=== PATIENT | female | born 1980 | race Caucasian/White ===

== ENCOUNTER → 2018-11-12 | Outpatient (CLI) | payer BC ==
[2015-12-28 10:31] VITALS: BP 131/85
[~2018-11-12] MED LIST: BENZ100C PO; DOXY100C2 PO; HYDR-3165 PO; IBUP800T19 PO
--- NOTE | 2018-11-12 16:17 | RAD ---
DATE: November 12, 2018 EXAM: MAMMO SARAH SCREENING BILATERAL, BILATERAL BREAST SONOGRAPHY HISTORY: Bilateral breast tenderness. Patient's physician found a lump in the lateral lower quadrant of the left breast. COMPARISON: None. Baseline study. 2-D DIAGNOSTIC MAMMOGRAPHY This study was interpreted with the benefit of Computerized Aided Detection (CAD). FINDINGS: There is difficulty in positioning this patient and performing the mammogram due to severe breast tenderness bilaterally. The patient did not tolerate much compression. Breast Density: SCATTERED The breast parenchyma shows scattered fibroglandular densities. Breast parenchyma level B. A BB was placed on the outer lower quadrant of the left breast in the area of the palpable lump as indicated by the patient. No focal mammographic abnormality is seen here. The left breast is unremarkable. On the right side, there is an irregular nodule seen 8 cm straight back from the nipple at the 6 clock position measuring about 1 cm in size. No clustering of pleomorphic microcalcifications are evident on either side. LEFT BREAST SONOGRAPHY: High-resolution sonography of the inferior one half of the left breast from the 3:00 and 9:00 position was performed. No focal sonographic abnormality is evident. RIGHT BREAST SONOGRAPHY: High-resolution sonography of the right breast from the 5:00 to 7:00 position was performed. No focal sonographic abnormality is seen to correspond to the mammographic finding. Therefore, the mammographic finding is indeterminate. IMPRESSION: No focal mammographic or sonographic abnormality is seen to correspond to the area of possible breast lump of the lower outer quadrant of the left breast. Therefore, with regard to the palpable lump, follow-up should be clinical. There is an indeterminate mammographic nodule of the 6:00 position of the right breast 8 cm from the nipple. No sonographic correlate. Recommend breast MRI study with gadolinium for further evaluation. Note-this study was interpreted off site. Therefore, the research food technologist discussed the findings with the patient and recommendation for a breast MRI study. She told the patient to call her physician's office for further instructions. In addition, the research food technologist called the office of the patient's physician and told them about the recommendation for a breast MRI study. BI-RADS CATEGORY: 0 INCOMPLETE: NEEDS ADDITIONAL IMAGING EVALUATION AND/OR PRIOR MAMMOGRAMS FOR COMPARISON. RECOMMENDED FOLLOW-UP: ADD ADDITIONAL IMAGING PQRS compliance statement: Patient information was entered into a reminder system with a target due date November 13, 2019 for the next mammogram. Mammography is a sensitive method for finding small breast cancers, but it does not detect them all and is not a substitute for careful clinical examination. A negative mammogram does not negate a clinically suspicious finding and should not result in delay in biopsying a clinically suspicious abnormality. "Our facility is accredited by the [employer] Mammography Program." The patient's breast density may affect the ability of mammography to detect breast cancer. There are 4 categories of breast density, A, B, C and D. Breast density A means that most of the breast tissue is replaced with adipose tissue and therefore is not dense. Breast density B means that the breast tissue is mildly dense and scattered. Breast density C means that the breast tissue is heterogeneously dense. Breast density D means that the breast tissue is very dense. Breast densities especially C and D may decrease the sensitivity of mammography to detect breast cancer. Therefore, the patient may benefit from 3-D breast mammography (3D breast tomography) as a part of their screening mammogram. Insurance may or may not pay for this additional imaging. The patient's breast density based on today's mammogram is category B.
== END | disposition home or self-care (01) ==
LOC: MAMMO 14:00
PROVIDERS: ATTEND Physician Assistant
DX: N64.4 Mastodynia (principal)
CPT/HCPCS: 76641; 77066

== ENCOUNTER → 2019-12-30 | Outpatient (CLI) | payer OTHER ==
[2015-12-28 10:31] VITALS: BP 131/85
--- NOTE | 2019-12-30 13:59 | RAD ---
EXAM: OBSTETRIC ULTRASOUND, <14 WEEKS. HISTORY: Pelvic pain in . COMPARISON: None. FINDINGS: Sonographic evaluation of the pelvis was performed transabdominally and transvaginally. The uterus is anteverted and measures 8.9 x 5.0 x 4.9 cm. There is a single intrauterine gestation measuring 6 weeks 1 day. heart rate is 113 bpm. A yolk sac is visualized. The gestational sac is regular. There is no subchorionic collection. Neither ovary is visualized currently. There is no clear adnexal mass. There is no significant free fluid. IMPRESSION: 1. Single intrauterine gestation measuring 6 weeks 1 day. heart rate 113 bpm. Electronically signed by: Neri Doran MD (12/30/2019 1:56 PM) [facility]
== END | disposition home or self-care (01) ==
LOC: US 13:20
PROVIDERS: ATTEND Family Medicine
DX: O26.91 Pregnancy related conditions, unspecified, first trimester (principal); N39.0 Urinary tract infection, site not specified; Z3A.01 Less than 8 weeks gestation of pregnancy
CPT/HCPCS: 76801

== ENCOUNTER 2020-01-22 10:33 | Emergency (ER) | payer OTHER ==
[~2020-01-22] VITALS: Ht 160 cm; Wt 60.6 kg
[2020-01-22] MEDS ORDERED: IV NORMAL SALINE 1,000ML 1,000 ML IV SCH (10:54)
[2020-01-22] MEDS ORDERED: ONDANSETRON PF 4 MG/2 ML VIAL. IVP ONE (11:00)
[2020-01-22 11:28] LABS: BASO # 0.1 x10^3/uL (0.0-0.2); BASO % 1 % (0-3); EOS # 0.1 x10^3/uL (0.0-0.7); EOS % 1 % (0-3); HEMATOCRIT 38.3 % (36.0-47.0); HEMOGLOBIN 13.1 g/dL (12.0-15.5); LYMPH # 2.3 x10^3/uL (1.0-4.8); LYMPH % 15 % (24-48); MEAN CORPUSCULAR HEMOGLOBIN 33 pg (25-35); MEAN CORPUSCULAR HGB CONC 34 g/dL (31-37); MEAN CORPUSCULAR VOLUME 96 fL (79-100); MONO # 0.9 x10^3/uL (0.0-1.1); MONO % 6 % (0-9); NEUT # 12.1 x10^3uL (1.8-7.7); NEUT % 78 % (31-73); PLATELET COUNT 254 x10^3/uL (140-400); RED CELL DISTRIBUTION WIDTH 12.7 % (11.5-14.5); WHITE BLOOD COUNT 15.5 x10^3/uL (4.0-11.0)
[2020-01-22 11:39] LABS: CALCIUM 8.5 mg/dL (8.5-10.1); CREATININE 0.5 mg/dL (0.6-1.0); POTASSIUM 3.7 mmol/L (3.5-5.1)
[2020-01-22 11:44] LABS: ALBUMIN 3.5 g/dL (3.4-5.0); TOTAL BILIRUBIN 0.4 mg/dL (0.2-1.0)
[2020-01-22 11:51] LABS: BACTERIA,URINE MOD /HPF (0-FEW); BILIRUBIN,URINE NEG (NEG); CLARITY,URINE CLEAR; COLOR,URINE YELLOW; GLUCOSE,URINE NEG (NEG); NITRITE,URINE NEG (NEG); SQUAMOUS EPITHELIAL CELL,UR MOD /LPF; UROBILINOGEN,URINE 0.2 mg/dL (0.2 mg/dL)
[2020-01-22 12:26] LABS: % ATYL 1 % (0-0); % BANDS 1 % (0-9); % LYMPHS 14 % (24-48); % MONOS 8 % (0-10); % SEGS 76 % (35-66)
[2020-01-22] MEDS ORDERED: ONDA4TAB12 PO (12:27)
--- NOTE | 2020-01-22 12:27 | PHYS DOC ---
Past History Past Medical History: Cancer, Other Additional Past Medical Histor: Right sided breast cancer Past Surgical History: Other Additional Past Surgical Histo: right sided lumpectomy Alcohol Use: None Drug Use: None Adult General Chief Complaint Chief Complaint: VOMITING IN [facility] HPI Patient is a 40-year-old female who presents with complaint of nausea and vomiting with . Patient states that she is and found out she was approximately 2 weeks ago. Patient states that nausea and vomiting has really been getting worse over the last week. She denies having any nausea medication at home. Patient states that she is concerned that she is getting dehydrated although she does indicate she has been able to keep fluids down. She denies any pelvic cramping or vaginal bleeding. She does admit that her abdomen is getting a bit sore with the vomiting.[] Review of Systems Review of Systems Constitutional: Denies fever or chills [] Respiratory: Denies cough or shortness of breath [] Cardiovascular: No additional information not addressed in HPI [] GI: Denies abdominal pain. Complains of nausea and vomiting without diarrhea [] Neurologic: Denies headache, focal weakness or sensory changes [] All other systems were reviewed and found to be within normal limits, except as documented in this note. Current Medications Current Medications Current Medications Medications (Trade) Dose Ordered Sig/Chris Start Time Stop Time Status Last Admin Dose Admin Ondansetron HCl (Zofran) 4 mg 1X ONCE 01/22/20 11:00 01/22/20 11:01 DC 01/22/20 11:08 4 MG Sodium Chloride 1,000 ml @ 1,000 mls/hr Q1H 01/22/20 10:54 01/22/20 11:53 DC 01/22/20 11:08 1,000 MLS/HR Allergies Allergies Allergies Coded Allergies Type Severity Reaction Last Updated Verified Penicillins Allergy Intermediate 01/22/20 No cephalexin Allergy Intermediate 01/22/20 No sulfamethoxazole Allergy Intermediate 01/22/20 No trimethoprim Allergy Intermediate 01/22/20 No Physical Exam Physical Exam Constitutional: Well developed, well nourished, no acute distress, non-toxic appearance. [] HENT: Normocephalic, atraumatic, bilateral external ears normal, oropharynx moist, no oral exudates, nose normal. [] Eyes: PERRLA, EOMI, conjunctiva normal, no discharge. [] Neck: Normal range of motion, no tenderness, supple, no stridor. [] Cardiovascular:Heart rate regular rhythm, no murmur [] Lungs & Thorax: Bilateral breath sounds clear to auscultation [] Abdomen: Bowel sounds normal, soft, no tenderness. [] Skin: Warm, dry, no erythema, no rash. [] Extremities: No tenderness, no cyanosis, no clubbing, ROM intact, no edema. [] Neurologic: Alert and oriented X 3, no focal deficits noted. [] Current Patient Data Vital Signs Vital Signs Date Time Temp Pulse Resp B/P (MAP) Pulse Ox O2 Delivery O2 Flow Rate FiO2 01/22/20 11:26 97.4 98 18 135/80 (98) 99 Room Air Lab Results Laboratory Tests Test 01/22/20 11:00 01/22/20 11:12 Urine Collection Type Unknown Urine Color Yellow Urine Clarity Clear Urine pH 7.0 Urine Specific [place] 1.015 Urine Protein Neg (NEG-TRACE) Urine Glucose (UA) Neg mg/dL (NEG) Urine Ketones (Stick) 40 mg/dL (NEG) Urine Blood Trace (NEG) Urine Nitrite Neg (NEG) Urine Bilirubin Neg (NEG) Urine Urobilinogen Dipstick 0.2 mg/dL (0.2 mg/dL) Urine Leukocyte Esterase Neg (NEG) Urine RBC 6-10 /HPF (0-2) Urine WBC 1-4 /HPF (0-4) Urine Squamous Epithelial Cells Mod /LPF Urine Transitional Epithelial Cells Few /LPF Urine Bacteria Mod /HPF (0-FEW) White Blood Count 15.5 x10^3/uL (4.0-11.0) H Red Blood Count 4.00 x10^6/uL (3.50-5.40) Hemoglobin 13.1 g/dL (12.0-15.5) Hematocrit 38.3 % (36.0-47.0) Mean Corpuscular Volume 96 fL (79-100) Mean Corpuscular Hemoglobin 33 pg (25-35) Mean Corpuscular Hemoglobin Concent 34 g/dL (31-37) Red Cell Distribution Width 12.7 % (11.5-14.5) Platelet Count 254 x10^3/uL (140-400) Neutrophils (%) (Auto) 78 % (31-73) H Lymphocytes (%) (Auto) 15 % (24-48) L Monocytes (%) (Auto) 6 % (0-9) Eosinophils (%) (Auto) 1 % (0-3) Basophils (%) (Auto) 1 % (0-3) Neutrophils # (Auto) 12.1 x10^3uL (1.8-7.7) H Lymphocytes # (Auto) 2.3 x10^3/uL (1.0-4.8) Monocytes # (Auto) 0.9 x10^3/uL (0.0-1.1) Eosinophils # (Auto) 0.1 x10^3/uL (0.0-0.7) Basophils # (Auto) 0.1 x10^3/uL (0.0-0.2) Platelet Estimate Pending Maternal Serum HCG Beta Subunit 79464 mIU/mL (0-6) H Sodium Level 138 mmol/L (136-145) Potassium Level 3.7 mmol/L (3.5-5.1) Chloride Level 103 mmol/L (98-107) Carbon Dioxide Level 22 mmol/L (21-32) Anion Gap 13 (6-14) Blood Urea Nitrogen 4 mg/dL (7-20) L Creatinine 0.5 mg/dL (0.6-1.0) L Estimated GFR (Cockcroft-Gault) 136.0 BUN/Creatinine Ratio 8 (6-20) Glucose Level 83 mg/dL (70-99) Calcium Level 8.5 mg/dL (8.5-10.1) Total Bilirubin 0.4 mg/dL (0.2-1.0) Aspartate Amino Transferase (AST) 18 U/L (15-37) Alanine Aminotransferase (ALT) 25 U/L (14-59) Alkaline Phosphatase 65 U/L (46-116) Total Protein 7.0 g/dL (6.4-8.2) Albumin 3.5 g/dL (3.4-5.0) Albumin/Globulin Ratio 1.0 (1.0-1.7) Lipase 73 U/L (73-393) EKG EKG [] Radiology/Procedures Radiology/Procedures [] Course & Med Decision Making Course & Med Decision Making Pertinent Labs and Imaging studies reviewed. (See chart for details) [] Dragon Disclaimer Dragon Disclaimer This electronic medical record was generated, in whole or in part, using a voice recognition dictation system. Departure Departure: Impression: Primary Impression: Nausea and vomiting during Disposition: HOME, SELF-CARE Condition: STABLE Referrals: CHACHA ALFONSO MD (PCP) Patient Instructions: Nausea and Vomiting, Scripts Ondansetron (ONDANSETRON ODT) 4 Mg Tab.rapdis 1 TAB PO PRN Q6-8HRS PRN for NAUSEA, #12 TAB Prov: DIMITRIS JAY Jr. DO 01/22/20 DIMITRIS JAY Jr. DO Jan 22, 2020 12:27
[2020-01-22 12:28] LABS: PLT ESTIMATE ADEQUATE (ADEQUATE)
[2020-01-22 12:34] VITALS: BP 117/66
== END 2020-01-22 12:35 | disposition home or self-care (01) ==
LOC: ER 10:33
DX: O21.9 Vomiting of pregnancy, unspecified (principal); Z3A.01 Less than 8 weeks gestation of pregnancy; Z88.0 Allergy status to penicillin; Z88.1 Allergy status to other antibiotic agents; Z88.2 Allergy status to sulfonamides
CPT/HCPCS: 36415; 80053; 81001; 83690; 84702; 85007; 85025; 87086; 96361; 96374; 99283; J2405; J7030

== ENCOUNTER → 2020-04-08 | Outpatient (CLI) | payer OTHER ==
[~2020-04-08] MED LIST changes: +ONDA4TAB12 PO
--- NOTE | 2020-04-08 15:09 | RAD ---
EXAM: Obstetrics sonogram. HISTORY: Size and dates discrepancy. TECHNIQUE: Sonographic imaging of a gravid uterus was performed. COMPARISON: 12/30/2019. FINDINGS: There is a single intrauterine fetus in breech presentation with a normal heart rate of 149 bpm. There is a three-vessel umbilical cord. The heart, stomach, kidneys, bladder, spine, brain, facial profile and extremities are unremarkable. There is a posterior placenta without evidence of placenta previa. The amniotic fluid index is normal at 19.1 cm. The biparietal diameter is 4.9 cm, corresponding with 20 weeks and 5 days. The heads are present is 18.0 cm, corresponding with 20 weeks and 3 days. The abdominal circumference is 15.3 cm, corresponding with 20 weeks and 3 days. The femoral length is 3.4 cm, corresponding with 20 weeks and 6 days. The estimated gestational age patient combined ultrasound measurements is 20 weeks and 4 days. The estimated due date is 08/22/2020. This estimated weight is 366 g. The estimated due date is 08/22/2020. The cervix is closed and measures 3.4 cm in length. IMPRESSION: 1. Single intrauterine fetus in breech presentation with a normal heart rate and gestational age based on ultrasound measurements of 20 weeks and 4 days. 2. Unremarkable anatomy survey. Electronically signed by: Pamela Gold MD (04/08/2020 3:06 PM) [id number]
== END ==
LOC: US 12:39
PROVIDERS: ATTEND Obstetrics & Gynecology
DX: O32.1XX0 Maternal care for breech presentation, not applicable or unspecified (principal); Z3A.20 20 weeks gestation of pregnancy
CPT/HCPCS: 76805

== ENCOUNTER 2020-08-10 14:55 | Emergency (ER) | payer OTHER ==
[~2020-08-10] VITALS: Ht 160 cm; Wt 77.2 kg
--- NOTE | 2020-08-10 15:24 | PHYS DOC ---
Past History Past Medical History: Cancer, Other Additional Past Medical Histor: Right sided breast cancer Past Surgical History: Other Additional Past Surgical Histo: right sided lumpectomy Alcohol Use: None Drug Use: None General Adult EDM: Chief Complaint: MULTIPLE COMPLAINTS HPI: HPI: The history was obtained from the patient. Patient is a 40-year-old female with PMH preeclampsia, anxiety who presents with a chief complaint of chest pain. Patient states she is had chest discomfort ever since she delivered her baby. She notes that she was diagnosed with preeclampsia and had her and juice for vaginal delivery 4 days ago. She notes that she has had progressive shortness of breath since delivery. She does note chest pain which is made worse with breast palpation. She is not breast-feeding or pumping. She denies any fevers. She does note lower extremity swelling that is been present for several months. She does not take any antihypertensives. She did take a Lasix pill for 3 days as prescribed by her PIPELINE EXECUTIVE. She described her symptoms to her PIPELINE EXECUTIVE today Dr. Stout who instructed her to report to the emergency department. She denies syncope or falls. She denies any seizure-like activity. She does note some tremors. Denies headache or vision changes. Denies vertiginous symptoms. No other complaints. Review of Systems: Review of Systems: Constitutional: Positive for subjective fevers and chills, generalized weakness Eyes: Denies change in visual acuity HENT: Denies nasal congestion or sore throat Respiratory: Positive for shortness of breath Cardiovascular: Positive for lower extremity edema GI: Denies abdominal pain, nausea, vomiting, bloody stools or diarrhea : Denies dysuria Musculoskeletal: Denies back pain or joint pain Integument: Denies rash Neurologic: Denies headache, focal weakness or sensory changes Endocrine: Denies polyuria or polydipsia Lymphatic: Denies swollen glands Psychiatric: Denies depression or anxiety Heart Score: Risk Factors: Risk Factors: DM, Current or recent (<one month) smoker, HTN, HLP, family history of CAD, obesity. Risk Scores: Score 0 - 3: 2.5% MACE over next 6 weeks - Discharge Home Score 4 - 6: 20.3% MACE over next 6 weeks - Admit for Clinical Observation Score 7 - 10: 72.7% MACE over next 6 weeks - Early Invasive Strategies Allergies: Allergies: Allergies Coded Allergies Type Severity Reaction Last Updated Verified Penicillins Allergy Intermediate 01/22/20 No cephalexin Allergy Intermediate 01/22/20 No sulfamethoxazole Allergy Intermediate 01/22/20 No trimethoprim Allergy Intermediate 01/22/20 No Physical Exam: PE: Constitutional: Well developed, well nourished, no acute distress, non-toxic appearance. [] HENT: Normocephalic, atraumatic, bilateral external ears normal, oropharynx moist, no oral exudates, nose normal. [] Eyes: PERRLA, EOMI, conjunctiva normal, no discharge. [] Neck: Normal range of motion, no tenderness, supple, no stridor. [] Cardiovascular:Heart rate regular rhythm, no murmur [] Lungs & Thorax: Bilateral breath sounds clear to auscultation [] Abdomen: Soft, nontender, nonacute abdomen. No involuntary guarding or rigidity noted. No acute peritonitis.. No palpable liver edge. Skin: Warm, dry, no erythema, no rash. [] Back: No tenderness, no CVA tenderness. [] Extremities: +2-4 pitting edema lower extremity bilaterally. Chronic venous skin changes noted. Neurologic: Alert and oriented X 3, normal motor function, normal sensory function, no focal deficits noted. [] Psychologic: Affect normal, judgement normal, mood normal. [] Current Patient Data: Labs: Laboratory Tests Test 08/10/20 15:22 08/10/20 15:42 08/10/20 16:32 White Blood Count 11.6 x10^3/uL Red Blood Count 4.05 x10^6/uL Hemoglobin 14.2 g/dL Hematocrit 41.5 % Mean Corpuscular Volume 103 fL Mean Corpuscular Hemoglobin 35 pg Mean Corpuscular Hemoglobin Concent 34 g/dL Red Cell Distribution Width 13.8 % Platelet Count 260 x10^3/uL Neutrophils (%) (Auto) 75 % Lymphocytes (%) (Auto) 16 % Monocytes (%) (Auto) 6 % Eosinophils (%) (Auto) 2 % Basophils (%) (Auto) 1 % Neutrophils # (Auto) 8.7 x10^3uL Lymphocytes # (Auto) 1.9 x10^3/uL Monocytes # (Auto) 0.7 x10^3/uL Eosinophils # (Auto) 0.3 x10^3/uL Basophils # (Auto) 0.1 x10^3/uL Sodium Level 140 mmol/L Potassium Level 3.6 mmol/L Chloride Level 104 mmol/L Carbon Dioxide Level 24 mmol/L Anion Gap 12 Blood Urea Nitrogen 14 mg/dL Creatinine 0.8 mg/dL Estimated GFR (Cockcroft-Gault) 79.0 BUN/Creatinine Ratio 18 Glucose Level 115 mg/dL Uric Acid 6.0 mg/dL Calcium Level 8.9 mg/dL Magnesium Level 1.8 mg/dL Total Bilirubin 0.4 mg/dL Aspartate Amino Transf (AST/SGOT) 98 U/L Alanine Aminotransferase (ALT/SGPT) 118 U/L Alkaline Phosphatase 157 U/L Lactate Dehydrogenase 356 U/L Troponin I Quantitative < 0.017 ng/mL QD-Pwv-V-Type Natriuretic Peptide 100 pg/mL Total Protein 7.0 g/dL Albumin 3.0 g/dL Albumin/Globulin Ratio 0.8 Prothrombin Time 9.3 SEC Prothromb Time International Ratio 0.9 Activated Partial Thromboplast Time 23 SEC D-Dimer (Cecy) 1.80 mg/L Urine Collection Type U cath Urine Color Yellow Urine Clarity Clear Urine pH 6.5 Urine Specific [place] 1.025 Urine Protein 30 mg/dl Urine Glucose (UA) Neg mg/dL Urine Ketones (Stick) Neg mg/dL Urine Blood Small Urine Nitrite Neg Urine Bilirubin Neg Urine Urobilinogen Dipstick 1.0 mg/dL Urine Leukocyte Esterase Neg Urine RBC 3-5 /HPF Urine WBC Rare /HPF Urine Bacteria Few /HPF Urine Mucus Slight /LPF Current Medications Medications (Trade) Dose Ordered Sig/Chris Route PRN Reason Start Time Stop Time Status Last Admin Dose Admin Labetalol HCl (Normodyne) 20 mg 1X ONCE IVP 08/10/20 15:30 08/10/20 15:31 DC 08/10/20 15:59 Magnesium Sulfate 50 ml @ 25 mls/hr 1X ONCE IV 08/10/20 15:30 08/10/20 17:29 DC 08/10/20 16:08 Labetalol HCl (Normodyne) 40 mg 1X ONCE IVP 08/10/20 16:30 08/10/20 16:31 DC Labetalol HCl 250 mg/Sodium Chloride 250 ml @ 30 mls/hr 1X ONCE IV 08/10/20 16:30 08/10/20 16:30 DC Labetalol HCl (Normodyne) 40 mg 1X ONCE IVP 08/10/20 16:30 08/10/20 16:32 DC Iohexol (Omnipaque 350 Mg/ml) 100 ml 1X ONCE IV 08/10/20 17:00 08/10/20 17:01 DC 08/10/20 17:08 EKG: EKG: EKG consistent with normal sinus rhythm. Ventricular rate of 87 bpm. [place] normal. Intervals normal. No acute ischemic changes noted. [] Radiology/Procedures: Radiology/Procedures: [address] [address] IMAGING REPORT Signed PATIENT: DAMIEN PITT ACCOUNT: [id number] : 1980 LOCATION: ER AGE: 40 SEX: F EXAM STATUS: REG ER ORD. PHYSICIAN: AIMEE RINCON DO REASON: SOB. r/o PE vs post cardiomyopathy signs PROCEDURE: CT ANGIOGRAPHY CHEST EXAM: CT chest with contrast - pulmonary embolus protocol CLINICAL HISTORY: Reason: SOB. r/o PE vs post cardiomyopathy signs COMPARISON: None. TECHNIQUE: CT of the chest following the administration of intravenous contrast during the pulmonary arterial phase. Axial, coronal and sagittal reformatted images were generated including MIP images. ---PQRS compliance statement - One or more of the following individualized dose reduction techniques were utilized for this study: 1. Automated exposure control 2. Adjustment of the mA and/or kV according to patient size 3. Use of iterative reconstruction technique--- FINDINGS: CHEST: Diagnostic quality: Suboptimal. Pulmonary emboli: No pulmonary emboli to the level of the segmental branches. More peripheral vessels are not well assessed. Right heart strain: None Pulmonary arteries: Normal in caliber. Heart is not enlarged. No pericardial effusion. No pleural effusion or pneumothorax. No mediastinal or hilar lymphadenopathy. No axillary lymphadenopathy. No lobar consolidation. Minimal dependent opacities bilaterally likely atelectasis. A 3 mm lung nodule seen in the right upper lobe (series 4 image 56). Subcutaneous nodule overlying the dorsal soft tissues of the superior chest measures approximately 3 cm, possibly sebaceous cyst. Visualized Upper abdomen: Grossly unremarkable Bones: No aggressive osseous lesion is seen. IMPRESSION: 1. Suboptimal contrast bolus limits evaluation for acute pulmonary embolus. Within these constraints, no acute pulmonary emboli to the level of the segmental branches. 2. 3 mm lung nodule in the right upper lobe. Per Fleischner Society guidelines, in a low-risk patient, no follow-up is necessary. In a high-risk patient, follow-up in 12 months is recommended. Electronically signed by: Roger Brown MD (08/10/2020 5:34 PM) [facility] DICTATED AND SIGNED BY: ROGER BROWN MD DATE: 08/10/20 [id number] CC: CHACHA ALFONSO MD; AIMEE RINCON DO ~ [][place] [address] IMAGING REPORT Signed PATIENT: DAMIEN PITT ACCOUNT: [id number] : 1980 LOCATION: ER AGE: 40 SEX: F EXAM STATUS: REG ER ORD. PHYSICIAN: AIMEE RINCON DO REASON: RUQ pain. post . HELLP syndrome. eval for hepatic hematoma PROCEDURE: ABDOMEN LTD Clinical History: Abdominal pain and tenderness 5 days Technique: Sonographic examination of the right upper quadrant of the abdomen was performed and multiple static images were obtained. Comparison: none Findings: Liver: The majority of the liver is visualized and appears homogeneous. Common bile duct: Appears normal and measures 2.5 mm in diameter. Gallbladder: appears normal. There is tenderness over the gallbladder. Pancreas: is not well visualized due to overlying bowel gas but appears within normal limits. Right kidney: appears normal and measures 11 cm in length. Main Portal Vein: Normal hepatopedal flow Aorta: normal IVC: normal Impression: Tenderness over the gallbladder is nonspecific. There is no cholelithiasis. There is no wall thickening or surrounding fluid to suggest acute cholecystitis. Electronically signed by: Johann Acevedo III, MD (08/10/2020 5:14 PM) [id number] DICTATED AND SIGNED BY: JOHANN ACEVEDO III, MD DATE: 08/10/20 [id number] CC: CHACHA ALFONSO MD; AIMEE RINCON DO ~ Course & Med Decision Making: Course & Med Decision Making Pertinent Labs and Imaging studies reviewed. (See chart for details) Patient is a 5-day 40-year-old female presents with multiple complaints including generalized weakness, shortness of breath, leg swelling. Initial vital signs notable for blood pressure 145/110. She was given immediate 4 g of magnesium as well as 20 mg of IV labetalol. Her pressure did improve quickly to a repeat systolic blood pressure of approximately 120. She showed no signs of neurologic symptoms including headache, seizures, vision changes. Basic labs were obtained. Urinalysis does reveal proteinuria. Chemistry panel did reveal mildly elevated liver enzymes. Normal platelets. Normal hemoglobin. Right upper quadrant ultrasound was obtained although I did overall have low concern for help syndrome. This was negative for hepatic hematoma or gallbladder process. CT PE study was also obtained given her status and showed no signs of PE. I do feel the patient will require hospitalization for preeclamptic management. I did speak with the patient's PIPELINE EXECUTIVE Dr. Stout who is in agreement. Her blood pressure did creep up marginally to approximate 145/100 after CAT scan imaging. Repeat 20 mg of nightly available was administered and her repeat blood pressures at 136/90. She continues to show no neurologic symptoms. Patient is agreeable to transfer at this time. Per Vices Disclaimer: Per Vices Disclaimer: This electronic medical record was generated, in whole or in part, using a voice recognition dictation system. Departure Departure: Impression: Primary Impression: Pre-eclampsia Qualified Codes: O14.90 - Unspecified pre-eclampsia, unspecified trimester Additional Impression: Transaminitis Disposition: SHT-TRM HOSP Condition: STABLE Referrals: CHACHA ALFONSO MD (PCP) Justification of Admission: Justification of Admission: Justification of Admission Dx: Yes Comments: pre-eclampsia AIMEE RINCON DO Aug 10, 2020 15:24
[2020-08-10] MEDS ORDERED: LABETALOL 20 MG/4 ML DISP.SYRIN. IVP ONE ×3 (15:30→16:30)
[2020-08-10] MEDS ORDERED: MAGNESIUM SULFATE 2GM 50 ML IV ONE (15:30)
--- NOTE | 2020-08-10 15:44 | RAD ---
CHEST AP ONLY Clinical indications: Shortness of breath COMPARISON: None available. Findings: No acute lung infiltrate or pleural effusion or pulmonary edema or lung mass or pneumothorax is seen. The heart size, pulmonary vasculature, mediastinum and both darlene are unremarkable. Impression: No acute radiographic abnormality is seen. Electronically signed by: Vel Serna MD (08/10/2020 3:41 PM) [id number]
[2020-08-10 16:05] LABS: BASO # 0.1 x10^3/uL (0.0-0.2); BASO % 1 % (0-3); EOS # 0.3 x10^3/uL (0.0-0.7); EOS % 2 % (0-3); HEMATOCRIT 41.5 % (36.0-47.0); HEMOGLOBIN 14.2 g/dL (12.0-15.5); LYMPH # 1.9 x10^3/uL (1.0-4.8); LYMPH % 16 % (24-48); MEAN CORPUSCULAR HEMOGLOBIN 35 pg (25-35); MEAN CORPUSCULAR HGB CONC 34 g/dL (31-37); MEAN CORPUSCULAR VOLUME 103 fL (79-100); MONO # 0.7 x10^3/uL (0.0-1.1); MONO % 6 % (0-9); NEUT # 8.7 x10^3uL (1.8-7.7); NEUT % 75 % (31-73); PLATELET COUNT 260 x10^3/uL (140-400); RED BLOOD COUNT 4.05 x10^6/uL (3.50-5.40); RED CELL DISTRIBUTION WIDTH 13.8 % (11.5-14.5); WHITE BLOOD COUNT 11.6 x10^3/uL (4.0-11.0)
[2020-08-10 16:12] LABS: CALCIUM 8.9 mg/dL (8.5-10.1); CREATININE 0.8 mg/dL (0.6-1.0); POTASSIUM 3.6 mmol/L (3.5-5.1)
[2020-08-10 16:25] LABS: ALBUMIN/GLOBULIN RATIO 0.8 (1.0-1.7); MAGNESIUM 1.8 mg/dL (1.8-2.4); TOTAL BILIRUBIN 0.4 mg/dL (0.2-1.0)
[2020-08-10] MEDS ORDERED: LABETALOL 250 MG in IV NORMAL SALINE 250ML 200 ML IV ONE (16:30)
--- NOTE | 2020-08-10 16:53 | EKG ---
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
[2020-08-10 16:57] LABS: BILIRUBIN,URINE NEG (NEG); CLARITY,URINE CLEAR; COLOR,URINE YELLOW; GLUCOSE,URINE NEG (NEG)
[2020-08-10 16:58] LABS: NITRITE,URINE NEG (NEG)
[2020-08-10] MEDS ORDERED: IOHEXOL 350 MG/ML 100 ML VIAL. IV ONE (17:00)
[2020-08-10 17:04] LABS: BACTERIA,URINE FEW /HPF (0-FEW); WBC,URINE RARE /HPF (0-4)
--- NOTE | 2020-08-10 17:17 | RAD ---
Clinical History: Abdominal pain and tenderness 5 days Technique: Sonographic examination of the right upper quadrant of the abdomen was performed and multiple static images were obtained. Comparison: none Findings: Liver: The majority of the liver is visualized and appears homogeneous. Common bile duct: Appears normal and measures 2.5 mm in diameter. Gallbladder: appears normal. There is tenderness over the gallbladder. Pancreas: is not well visualized due to overlying bowel gas but appears within normal limits. Right kidney: appears normal and measures 11 cm in length. Main Portal Vein: Normal hepatopedal flow Aorta: normal IVC: normal Impression: Tenderness over the gallbladder is nonspecific. There is no cholelithiasis. There is no wall thickening or surrounding fluid to suggest acute cholecystitis. Electronically signed by: Ayush Veras III, MD (08/10/2020 5:14 PM) [id number]
--- NOTE | 2020-08-10 17:37 | RAD ---
EXAM: CT chest with contrast - pulmonary embolus protocol CLINICAL HISTORY: Reason: SOB. r/o PE vs post cardiomyopathy signs COMPARISON: None. TECHNIQUE: CT of the chest following the administration of intravenous contrast during the pulmonary arterial phase. Axial, coronal and sagittal reformatted images were generated including MIP images. ---PQRS compliance statement - One or more of the following individualized dose reduction techniques were utilized for this study: 1. Automated exposure control 2. Adjustment of the mA and/or kV according to patient size 3. Use of iterative reconstruction technique--- FINDINGS: CHEST: Diagnostic quality: Suboptimal. Pulmonary emboli: No pulmonary emboli to the level of the segmental branches. More peripheral vessels are not well assessed. Right heart strain: None Pulmonary arteries: Normal in caliber. Heart is not enlarged. No pericardial effusion. No pleural effusion or pneumothorax. No mediastinal or hilar lymphadenopathy. No axillary lymphadenopathy. No lobar consolidation. Minimal dependent opacities bilaterally likely atelectasis. A 3 mm lung nodule seen in the right upper lobe (series 4 image 56). Subcutaneous nodule overlying the dorsal soft tissues of the superior chest measures approximately 3 cm, possibly sebaceous cyst. Visualized Upper abdomen: Grossly unremarkable Bones: No aggressive osseous lesion is seen. IMPRESSION: 1. Suboptimal contrast bolus limits evaluation for acute pulmonary embolus. Within these constraints, no acute pulmonary emboli to the level of the segmental branches. 2. 3 mm lung nodule in the right upper lobe. Per Fleischner Society guidelines, in a low-risk patient, no follow-up is necessary. In a high-risk patient, follow-up in 12 months is recommended. Electronically signed by: Roger Lima MD (08/10/2020 5:34 PM) JUNITOTHAIS
[2020-08-10] MEDS ORDERED: LORazepam 1 MG TABLET ONE (18:28)
[2020-08-10] MEDS ORDERED: LORazepam 1 MG TABLET PO ONE ×2 (18:30→18:45)
[2020-08-10 19:53] VITALS: BP 140/85
[2020-08-11 18:07] LABS: CREATININE, UR 152.9 mg/dL (Not Estab.)
[2020-08-12 16:07] LABS: ALBUMIN RAND UR 50.2 % (.); ALPHA 1 RAND UR 7.5 % (.); ALPHA 2 RAND UR 16.9 % (.); BETA RAND UR 16.6 % (.); GAMMA RAND UR 8.7 % (.); PROTEIN UR RAND 34.9 mg/dL (Not Estab.)
== END 2020-08-10 20:48 | disposition short-term general hospital (02) ==
LOC: ER 14:55
DX: O14.95 Unspecified pre-eclampsia, complicating the puerperium (principal); R74.0 Nonspecific elevation of levels of transaminase and lactic acid dehydrogenase [LDH]; Z88.0 Allergy status to penicillin; Z88.1 Allergy status to other antibiotic agents; Z88.2 Allergy status to sulfonamides
CPT/HCPCS: 36415; 71045; 71275; 76705; 80053; 81001; 82570; 83615; 83735; 83880; 84166; 84484; 84550; 85025; 85379; 85610; 85730; 93005; 96365; 96375; 96376; 99285; J3475; J3490; Q9967; 96374

== ENCOUNTER → 2021-03-23 | Outpatient (CLI) | payer OTHER ==
--- NOTE | 2021-03-23 16:37 | RAD ---
EXAM: US extremity nonvascular DATE: 03/23/2021 4:09 PM COMPARISON: None INDICATION: Mass lesion, characterize and localize TECHNIQUE: Longitudinal and transverse imaging with intermittent Doppler sampling completed with atte ntion to right shoulder/scapula FINDINGS: A 3.7 x 3.4 x 1 cm solid lesion with central color Doppler flow is seen posterior to the right scapul a. IMPRESSION: Solid mass overlying the right scapula with internal flow on color Doppler imaging. Further evaluatio n with nonemergent contrast-enhanced MRI is recommended. Electronically signed by: Roger Lima MD (03/23/2021 4:35 PM) FADUMO
== END ==
LOC: US 16:02
PROVIDERS: ATTEND Nurse Practitioner Adult Health
DX: M71.311 Other bursal cyst, right shoulder (principal)
CPT/HCPCS: 76881

== ENCOUNTER → 2021-03-29 | Outpatient (CLI) | payer OTHER | LOC: LAB 08:42 | PROVIDERS: ATTEND Nurse Anesthetist, Certified Registered | DX: Z01.812 Encounter for preprocedural laboratory examination (principal); Z20.822 Contact with and (suspected) exposure to COVID-19 | CPT/HCPCS: 87426 ==

== ENCOUNTER → 2021-03-29 | Day surgery (SDC) | payer OTHER ==
[~2021-03-29] MED LIST changes: +ACETAMINOPHEN 500 MG TABLET PO ONE; +BUPIVACAINE MPF 0.25% 10 ML VIAL. ONE; +BUPIVACAINE-EPI 0.25%-1:200000 MPF 30 ML VIAL. INJ ONE; +BUPIVACAINE-EPI 0.25%-1:200000 MPF 30 ML VIAL. ONE; +IPRATRPIUM/ALBUTEROL 0.5/2.5MG 3 ML NEBU. NEB PRN; +IV RINGERS SOLUTION,LACTATED 1,000 ML IV SCH; +KETOROLAC 30 MG/ML VIAL. ONE; +LIDOCAINE 2% PF 5 ML VIAL. ONE; +MIDAZOLAM HCL PF 2 MG/2 ML VIAL. IV ONE; +MIDAZOLAM HCL PF 2 MG/2 ML VIAL. ONE; +ONDANSETRON PF 4 MG/2 ML VIAL. IV PRN; +PROPOFOL 10,000 MCG/ML (20ML) VIAL IV ONE; +SEVOFLURANE 31 TO 60 MINUTES. IH ONE; +SUCCINYLCHOLINE 200 MG/10 ML VIAL. ONE; +diphenhydrAMINE 50 MG/ML VIAL IVP ONE; +diphenhydrAMINE HCL 25 MG CAPSULE PO ONE
[2021-03-29 09:55] LABS: U PREG PATIENT NEGATIVE (NEG)
--- NOTE | 2021-03-29 10:56 | PDOC4 ---
Operative Report DATE March 29, 2021 at 1054 Preop Diagnosis Infected sebaceous cyst of the back Post-op Diagnosis Same Operation Performed Incision and drainage of sebaceous cyst Patient is a 41-year-old female with complaints of enlarging mass on her upper back red painful. Procedure of incision and drainage with packing was explained to the patient detail risk benefits were also discussed including bleeding infection alternatives of the procedure also discussed with the patient who seemed to understand and gave both verbal and written consent had procedure performed. Patient was taken to the operating room placed in the supine position general anesthesia was initiated once patient was sleeping intubated she was then placed in the prone positioning her right shoulder was prepped and draped usual sterile fashion using ChloraPrep. Area over this mass was incised with 11 blade scalpel with copious amounts of purulent material were expressed this was cultured. The rest was suction from the wound the wound was irrigated and suctioned dry the sebaceous cyst capsule was removed piecemeal. The wound was then packed with half-inch iodoform new gauze dressed with 4 x 4 Medipore tape. Patient was repositioned in supine positioning awakened and extubated operating room taken to recovery in stable condition all sponge instrument needle counts listed as correct estimated blood loss 10 mL Surgeon Torito ANESTHESIA PROPOSED: GENERAL, LOCAL Blood Loss 10 mL Specimen Cultures Complications None JOSIANE BERUMEN MD Mar 29, 2021 10:56
--- NOTE | 2021-03-29 10:58 | DISCH ---
DISCHARGE INSTRUCTIONS-DC Condition on Discharge Condition on Discharge: Stable Activity after Discharge Activity Instructions for Disc: Activity as tolerated Diet after Discharge Diet after Discharge: Regular Wound/Incision Care Other wound/incision instructi: Change packing daily, may shower Contacting the [facility] after DC Call your doctor for: If your condition worsens Follow-Up Follow up with: Dr. Berumen in 1 week JOSIANE BERUMEN MD Mar 29, 2021 10:58
--- NOTE | 2021-03-29 11:45 | NUR ---
Patient has red area on hand where new IV was inserted with Levaquin running. Patient also described itching sensation at that site. Levaquin stopped. Notified anesthesia. Anesthesia to order Benadryl.
[2021-03-29 12:00] VITALS: BP 125/84
--- NOTE | 2021-03-29 12:10 | NUR ---
Patient states relief from itching with Benadryl, patient also notes sore, swollen area on upper right lip. This nurse notes small open area and slight swelling. Notified anesthesia. Anesthesia and nursing agree that it appeas to be an open area suspected to be from intubation tube pinching lip when moved into or out of prone position during procedure. Patietn intructed to observe for any increased swelling or swelling in other areas of the mouth/tongue. Patient instructed that if thsi is noted to come directly to Emergency Department or call ambulance. Also discussed signs and symptoms of allergic reaction. Patient verbalized understanding.
--- NOTE | 2021-03-29 12:20 | NUR ---
Discussed discharge and follow-up instructions with spouse. Discussed signs and symptoms of allergic reaction. Instructed to call 911 or bring patient to ED if there are concerns for further reaction. Spouse Shyam verbalized understanding.
--- NOTE | 2021-04-03 18:09 | PATHOLOGY ---
[facility] Accession Number: [id number] . 01 Material submitted: . back - SEBACEOUS CYST UPPER BACK. Modifiers: upper . 01 Clinical history: . INFECTED SEBACEOUS CYST INCISION AND DRAINAGE SEBACEOUS CYST RULE OUT AEROBIC OR ANAEROBIC . 02 Diagnosis: Segments of fibrous tissue, upper back: - Epidermal inclusion cyst, chronically inflamed. ([facility] 04/03/2021) QTP 04/03/2021 1300 Local . 02 Comment: There is no evidence of malignancy. ([facility] 04/03/2021) . 02 Electronically signed: . Andrae Vega MD, Pathologist NPI- [id number] . 01 Gross description: . Received in formalin labeled "Mason, Susan, sebaceous cyst" are multiple fragmented irregular, moya-white membranous portions of soft tissue grossly consistent with cystic wall measuring in aggregate 3.9 x 2.6 x 0.9 cm. The cystic lining is examined to reveal no papillary excrescences or areas of thickening with an average wall thickness of 0.3 cm. Software Engineering Specialist sections of the specimen are submitted in cassette A1.([facility]; 03/31/2021) GZA/GZA 04/03/2021 1038 Local . 02 Pathologist provided ICD-10: L72.0 . 02 CPT . 795129 Specimen Comment: A courtesy copy of this report has been sent to [phone], [phone] Specimen Comment: [id number] Specimen Comment: Report sent to / Performed at: [address], [place], [place] [id number] MD Jonathan Brennan MD Phone: [phone] Performed at: 02 [facility] [address] [place], [place] [id number] MD Andrae Vega MD Phone: [phone]
== END | disposition home or self-care (01) ==
LOC: SURG 08:37
PROVIDERS: ATTEND Surgery
DX: L72.3 Sebaceous cyst (principal); Z20.822 Contact with and (suspected) exposure to COVID-19; L72.0 Epidermal cyst; Z88.0 Allergy status to penicillin; Z88.8 Allergy status to other drugs, medicaments and biological substances; Z79.899 Other long term (current) drug therapy
CPT/HCPCS: 10060; 81025; 87071; 87075; C9803; J0330; J1885; J1956; J2001; J2704; J3010; J3490; J7120; Q0163; U0003; U0005; 88304; J2250